=== PATIENT | female | born 2000 | race Caucasian/White ===

== ENCOUNTER 2025-04-12 22:56 | Emergency (ER) | payer OTHER ==
[~2025-04-12] VITALS: Ht 170.2 cm; Wt 59.0 kg
[2025-04-12] MEDS: LIDOCAINE HCL 1% 20ML VIAL INFIL ONE (23:45)
[2025-04-13] MEDS: IBUPROFEN 600MG TABLET PO ONE (01:30)
[2025-04-13] MEDS: ACETAMINOPHEN 325MG TABLET PO ONE (01:33)
[2025-04-13] MEDS ORDERED: IBUP-2029 MT (01:34)
[2025-04-13 01:37] VITALS: BP 122/93; PULSE 77; RESP 12; TEMP 37.1; O2SAT 96
== END 2025-04-13 01:43 | disposition home or self-care (01) ==
LOC: ER 22:56
DX: S01.01XA Laceration without foreign body of scalp, initial encounter (principal); F32.A Depression, unspecified; F41.9 Anxiety disorder, unspecified; Z79.899 Other long term (current) drug therapy; Y08.89XA Assault by other specified means, initial encounter; Y93.89 Activity, other specified; Y92.89 Other specified places as the place of occurrence of the external cause; Y99.8 Other external cause status
CPT/HCPCS: 73120 ×2; 70450; 12001; 99284; J2003; Z7610